=== PATIENT | female | born 1985 | race Two or more races ===

== ENCOUNTER 2020-02-22 09:59 | Outpatient (CLI) | payer MEDICAID ==
[~2020-02-22 09:59] MED LIST: FISH OIL PO; FLUTICASONE PO; IBUP-1223 PO; MULTIVITAMIN FOR HER PO; OXYC-302 PO; SERT50TA PO
[2020-02-22] MEDS ORDERED: OMEP40CA42 PO (10:30)
== END 2020-02-22 23:59 | disposition home or self-care (01) ==
LOC: STAR 09:59
PROVIDERS: ATTEND Urology
DX: Z02.9 Encounter for administrative examinations, unspecified (principal)

== ENCOUNTER 2020-02-26 11:06 | Day surgery (SDC) | payer MEDICAID ==
[~2020-02-26] VITALS: Ht 162.6 cm; Wt 103.3 kg
[~2020-02-26 11:06] MED LIST changes: +BUPIVACAINE/PF-EPI 0.25% 1:200K ONE; +GENTAMICIN 80 MG/2 ML ONE; +OMEP40CA42 PO; +VANCOMYCIN 500 MG ONE
[2020-02-26 11:43] VITALS: BP 106/68
[2020-02-26] MEDS ORDERED: LACTATED RINGERS 1,000 ML IV SCH (11:43)
[2020-02-26] MEDS ORDERED: CHLORHEXIDINE 15 ML UDC MM ONE (12:00)
[2020-02-26] MEDS ORDERED: FENTANYL PF 250 MCG/5ML ONE (12:33)
[2020-02-26] MEDS ORDERED: MIDAZOLAM 1 MG/ML, 2ML ONE (12:33)
[2020-02-26] MEDS ORDERED: PROPOFOL 10 MG/ML, 20ML ONE (12:35)
[2020-02-26] MEDS ORDERED: KETOROLAC 30 MG/1 ML ONE (12:36)
[2020-02-26] MEDS ORDERED: ONDANSETRON 2MG/ML, 2ML ONE (12:56)
[2020-02-26] MEDS ORDERED: DEXAMETHASONE 4 MG/ML, 1ML ONE (12:56)
[2020-02-26] MEDS ORDERED: morphine SULFATE 10 MG/ML, 1ML IVPush PRN (13:00)
[2020-02-26] MEDS ORDERED: OXYcodone 5 MG/5 ML ORAL.SOL UDC PO PRN (13:00)
[2020-02-26] MEDS ORDERED: MEPERIDINE/PF 25MG/0.5ML IVPush PRN (13:00)
[2020-02-26] MEDS ORDERED: hydrALAzine 20 MG/ML, 1ML IV PRN (13:00)
[2020-02-26] MEDS ORDERED: HALOPERIDOL 5 MG/ML IV PRN (13:00)
[2020-02-26] MEDS ORDERED: ACETAMINOPHEN 325 MG TABLET PO PRN (13:00)
[2020-02-26] MEDS ORDERED: HYDROmorphone 1 MG/ML, 1ML INJ IVPush PRN (13:00)
[2020-02-26] MEDS ORDERED: PROMETHAZINE 25 MG/ML, 1ML IVPush PRN (13:00)
[2020-02-26] MEDS ORDERED: LABETALOL 5MG/ML, 20ML IV PRN (13:00)
[2020-02-26] MEDS ORDERED: CEFAZOLIN 1,000 MG ONE ×2 (13:24)
[2020-02-26] MEDS ORDERED: FENTANYL PF 100 MCG/2ML ONE (13:59)
[2020-02-26] MEDS ORDERED: ACETAMINOPHEN 650 MG/20.3 ML UDC ONE (13:59)
[2020-02-26] MEDS ORDERED: OXYcodone 5 MG/5 ML ORAL.SOL UDC ONE (13:59)
[2020-02-26] MEDS ORDERED: HYDROcodone/APAP 5/325 TABLET PO PRN (14:00)
[2020-02-26] MEDS ORDERED: ONDANSETRON 2MG/ML, 2ML IV PRN (14:00)
[2020-02-26] MEDS ORDERED: MEPERIDINE/PF 25MG/ML,1ML ONE (14:01)
[2020-02-26] MEDS: FENTANYL PF 100 MCG/2ML IV PRN ×2 (14:10→14:24)
== END 2020-02-26 18:35 | disposition home or self-care (01) ==
LOC: OUT 11:06
PROVIDERS: ATTEND Urology
DX: N39.46 Mixed incontinence (principal); Z11.59 Encounter for screening for other viral diseases; R35.0 Frequency of micturition; N81.10 Cystocele, unspecified; K21.9 Gastro-esophageal reflux disease without esophagitis; F32.9 Major depressive disorder, single episode, unspecified; Z79.899 Other long term (current) drug therapy; Z87.891 Personal history of nicotine dependence; Z90.710 Acquired absence of both cervix and uterus
CPT/HCPCS: 36415; 57288; 87635; C1771; J0690; J1100; J1580; J1885; J2175; J2250; J2405; J2704; J3010; J3370; J7120